=== PATIENT | female | born 1985 | race Caucasian/White ===

== ENCOUNTER 2021-12-22 19:59 | Emergency (ER) | payer BC ==
[2021-12-22] MEDS ORDERED: SODIUM CHLORIDE 0.9% 1,000 ML IV STA (20:32)
--- NOTE | 2021-12-22 20:36 | ED Physician Documentation ---
History of Present Illness - Stated complaint Stated Complaint: FEVER - Chief complaint Chief Complaint: Fever - History obtained from History obtained from: Patient - Additonal information Additional information: 36-year-old woman otherwise healthy has been sick for about 2 nights with likely COVID. The whole family has it. She has runny nose, sore throat, profound fatigue and body aches. She has not been eating or drinking well. She is breast-feeding. No health problems. Review of Systems Constitutional: reports: Fever, Chills, Myalgias, Fatigue Nose: reports: Rhinorrhea / runny nose Throat: reports: Sore throat Respiratory: reports: Cough. denies: Dyspnea PD PAST MEDICAL HISTORY - Present Medications Home Medications: Ambulatory Orders Medication Instructions Recorded Confirmed HYDROcod/ACETAM 5/325 [Constantine 5/325] 1 - 2 tab PO Q6H PRN #15 tablet 12/22/21 - Allergies Allergies/Adverse Reactions: Allergies Allergy/AdvReac Type Severity Reaction Status Date / Time aspirin Allergy Anaphylaxis Verified 12/22/21 20:04 PD ED PE NORMAL - Vitals Vital signs reviewed: Yes - General General: Alert and oriented X 3, No acute distress - HEENT HEENT: Ears normal, Pharynx benign - Neck Neck: Supple, no meningeal sign, No bony TTP - Cardiac Cardiac: Other (Tachycardic but only around 120 on my exam, less so than in triage.) - Respiratory Respiratory: No respiratory distress, Clear bilaterally - Abdomen Abdomen: Normal bowel sounds, Soft, Non tender - Back Back: No CVA TTP, No spinal TTP - Derm Derm: Normal color, Warm and dry - Extremities Extremities: No edema, No calf tenderness / cord - Neuro Neuro: Alert and oriented X 3, Normal speech Results - Vitals Vitals: Vital Signs - 24 hr 12/22/21 12/22/21 12/22/21 20:04 20:09 21:45 Temperature 37.2 C Heart Rate 145 H 142 H 121 H Respiratory 30 H Rate Blood Pressure 160/65 H 148/81 H O2 Saturation 98 99 12/22/21 12/23/21 23:00 00:24 Temperature 37.2 C Heart Rate 122 H 122 H Respiratory 22 22 Rate Blood Pressure 148/81 H O2 Saturation 100 100 Oxygen O2 Source Room air - Labs Labs: Laboratory Tests 12/22/21 12/22/21 20:45 21:00 Sodium 136 Potassium 3.9 Chloride 105 Carbon Dioxide 22 Anion Gap 9.0 BUN 10 Creatinine 0.6 Estimated GFR (MDRD) 114 Glucose 102 H Calcium 10.0 Nasal Adenovirus (PCR) NOT DETECTED Nasal B. parapertussis DNA (PCR) NOT DETECTED Nasal Coronavir 229E PCR NOT DETECTED Nasal Coronavir HKU1 PCR NOT DETECTED Nasal Coronavir NL63 PCR NOT DETECTED Nasal Coronavir OC43 PCR NOT DETECTED Nasal Enterovir/Rhinovir PCR NOT DETECTED Nasal Influenza B PCR NOT DETECTED Nasal Influenza A PCR NOT DETECTED Nasal Parainfluen 1 PCR NOT DETECTED Nasal Parainfluen 2 PCR NOT DETECTED Nasal Parainfluen 3 PCR NOT DETECTED Nasal Parainfluen 4 PCR NOT DETECTED Nasal RSV (PCR) NOT DETECTED Nasal B.pertussis DNA PCR NOT DETECTED Nasal C.pneumoniae (PCR) NOT DETECTED Wilver Human Metapneumo PCR NOT DETECTED Nasal M.pneumoniae (PCR) NOT DETECTED Nasal SARS-CoV-2 (PCR) DETECTED A PD MEDICAL DECISION MAKING - ED course ED course: 36yo health F with covid, fairly tachycardic, improved with fluids. We discussed antivirals, but safety in unknown and she is otherwise healthy. Departure - Departure Disposition: 01 Home, Self Care Clinical Impression: COVID-19 Condition: Good Instructions: ED Viral Syndrome Prescriptions: HYDROcod/ACETAM 5/325 [Constantine 5/325] 1 - 2 tab PO Q6H PRN #15 tablet PRN Reason: Pain Comments: I sent your prescriptions electronically to [facility] in [place]. Drink plenty of fluids. You should be better in the next couple of days, return for new or worsening symptoms. I am prescribing a short course of narcotic pain medication for you. These are potentially dangerous and addictive medications that should be used carefully. These medications may constipate you. Take an whym-[id number]-[id number] stool softener (docusate) twice daily with plenty of water while taking these medications. If you go 24 hours without a bowel movement, take [id number] miralax, per package instructions. Do not drink or drive while taking these medications. If you received narcotic or sedating medications while in the emergency department, do not drive for 24 hours. Store this medication in a safe, secure place and out of reach of children. It is a violation of federal law to give or sell this medication to another person or to use in a manner other than prescribed. The ED will not refill narcotic prescriptions, including prescriptions lost or stolen. To dispose of unwanted medications: 1. [facility] at [address] in [place] has a medication drop box. They accept prescription medications (in pill form) Wednesday through Wednesday 9:00 a.m. to 5:00 p.m. 2. [facility] accepts prescription medications (in pill form only) for disposal year round. Call for more information. 3. Contact the [facility] for the next [facility] sponsored prescription drug collection event. , [phone], or [phone]; Note that many narcotic pain relievers also contain Tylenol/acetaminophen. Please ensure that your total dose of acetaminophen from all sources does not exceed 3 g (3000 mg) per day. Discharge Date/Time: 12/23/21 00:24
[2021-12-22] MEDS ORDERED: HYDROmorphone 1 MG/ML CARPUJECT IVP STA (21:11)
[2021-12-22 21:12] LABS: CREATININE 0.6 mg/dL (0.4-1.0); POTASSIUM 3.9 mmol/L (3.5-5.0)
[2021-12-22 21:45] VITALS: BP 148/81
[2021-12-22] MEDS ORDERED: HYDROcod/ACET 5/325 Prepack 4 PO STA (22:00)
[2021-12-22] MEDS ORDERED: LACTATED RINGERS 1,000 ML IV STA (22:14)
[2021-12-22] MEDS ORDERED: ACETAMINOPHEN 500 MG TABLET PO STA (22:14)
[2021-12-22 22:31] LABS: B. PARAPERTUSSIS- RESP PCR PAN NOT DETECTED; B. PERTUSSIS- RESP PCR PANEL NOT DETECTED; C. PNEUMONIAE- RESP PCR PANEL NOT DETECTED; CORONAVIRUS 229E-RESP PCR NOT DETECTED; CORONAVIRUS HKU1-RESP PCR NOT DETECTED; CORONAVIRUS NL63-RESP PCR NOT DETECTED; CORONAVIRUS OC43-RESP PCR NOT DETECTED; HUMAN METAPNEUMOVIRUS NOT DETECTED; INFLUENZA A- RESP PCR PANEL NOT DETECTED; INFLUENZA B - RESP PCR PANEL NOT DETECTED; M. PNEUMONIAE- RESP PCR PANEL NOT DETECTED; PARAINFLUENZA VIRUS 1 NOT DETECTED; PARAINFLUENZA VIRUS 2 NOT DETECTED; PARAINFLUENZA VIRUS 3 NOT DETECTED; PARAINFLUENZA VIRUS 4 NOT DETECTED; RHINOVIRUS/ENTEROVIRUS NOT DETECTED; RSV- RESP PCR PANEL NOT DETECTED
[2021-12-22 22:32] LABS: SARS-CoV-2 -RESP PCR PANEL DETECTED
== END 2021-12-23 00:24 | disposition home or self-care (01) ==
LOC: ED 19:59
DX: U07.1 COVID-19 (principal)
CPT/HCPCS: 36415; 80048; 87633; 96361; 96374; 99282; 99283; A9270; J1170; J7120